=== PATIENT | male | born 1945 | race Caucasian/White ===

== ENCOUNTER 2022-04-01 08:03 | Emergency (ER) | payer SELFPAY ==
[~2022-04-01] VITALS: Ht 167.6 cm; Wt 85.3 kg
--- NOTE | 2022-04-01 08:20 | NUR ---
RECEIVED PT 76 YRS MALE CAME FROM HOME S/P GLF C/O PAIN ON LT ANKLE
--- NOTE | 2022-04-01 09:04 | NUR ---
RESTING AT THIS TIME
--- NOTE | 2022-04-01 10:47 | NUR ---
PT RESTING WITH NO PAIN
--- NOTE | 2022-04-01 11:00 | NUR ---
X RAY DONE ON
--- NOTE | 2022-04-01 12:40 | NUR ---
RESTING AND ASLEEPY NO PAIN
--- NOTE | 2022-04-01 13:47 | NUR ---
Patient discharged to home in stable condition. Written and verbal after care instructions given. Patient verbalizes understanding of instruction.
[2022-04-01 13:55] VITALS: BP 126/75
== END 2022-04-01 14:18 | disposition home or self-care (01) ==
LOC: ER 08:07
DX: M77.32 Calcaneal spur, left foot (principal); M79.662 Pain in left lower leg; W18.39XA Other fall on same level, initial encounter; Y93.89 Activity, other specified; Y92.89 Other specified places as the place of occurrence of the external cause; Y99.8 Other external cause status
CPT/HCPCS: 73610-TC; 82962-TC; 93926-TC; 93971-TC

== ENCOUNTER 2022-11-23 16:56 | Emergency (ER) | payer MEDICARE ==
[~2022-11-23] VITALS: Ht 175.3 cm; Wt 79.4 kg
--- NOTE | 2022-11-23 17:15 | NUR ---
BIBRA 839 BILATERAL FOOT PAIN , WAS DISCHARGE FROM [facility] THIS MORNING FOR PERIPHERAL NEUROPATHY.
[2022-11-23] MEDS ORDERED: GABAPENTIN 100 MG CAPSULE PO ONE (17:30)
[2022-11-23] MEDS ORDERED: GABAPENTIN 300 MG CAPSULE ONE (17:33)
[2022-11-23] MEDS ORDERED: GABA-532 PO (17:43)
--- NOTE | 2022-11-23 18:05 | NUR ---
TAXI VOUCHER PROVIDED TO PATIENT
[2022-11-23 18:06] VITALS: BP 151/81
--- NOTE | 2022-11-23 18:06 | NUR ---
Patient discharged to home in stable condition. Written and verbal after care instructions given. Patient verbalizes understanding of instruction.
== END 2022-11-23 18:07 | disposition home or self-care (01) ==
LOC: ER 17:10
DX: E11.40 Type 2 diabetes mellitus with diabetic neuropathy, unspecified (principal)
CPT/HCPCS: 82962-TC

== ENCOUNTER 2024-06-19 08:50 | Inpatient (IN) | payer MEDICARE ==
[~2024-06-19] VITALS: Ht 175.3 cm; Wt 78.0 kg
[~2024-06-19 08:50] MED LIST: GABA-532 PO
[2024-06-19 09:38] LABS: BASOPHILS % (AUTO) 0.2 % (0.0-2.0); EOSINOPHILS % (AUTO) 0.1 % (0.0-6.0); HEMATOCRIT 39 % (39-51); HEMOGLOBIN 13.1 g/dL (13.5-17.5); LYMPHOCYTES # (AUTO) 0.6 K/uL (0.8-4.8); MEAN CORPUSCULAR HEMOGLOBIN 34 PG (26.0-33.0); MEAN CORPUSCULAR HGB CONC 34 g/dl (31.0-36.0); MEAN CORPUSCULAR VOLUME 100 fL (80-96); MONOCYTES # (AUTO) 0.6 K/uL (0.1-1.30); MONOCYTES % (AUTO) 5.4 % (2.0-12.0); NEUTROPHILS # (AUTO) 9.4 K/uL (1.8-8.9); NEUTROPHILS % (AUTO) 88.3 % (43.0-81.0); PLATELET COUNT (AUTO) 155 K/uL (150-450); RED BLOOD CELL COUNT(AUTO) 3.86 MIL/uL (4.5-6.0); RED CELL DISTRIBUTION WIDTH 14.1 % (11.5-15.0); WHITE BLOOD COUNT (AUTO) 10.7 K/uL (4.3-11.0)
[2024-06-19 09:48] LABS: CALCIUM, SERUM 9.9 mg/dL (8.5-10.1); CARBON DIOXIDE 30 mmol/L (21-32); CHLORIDE 106 mmol/L (98-107); CREATININE 1.4 mg/dL (0.6-1.3); GLUCOSE 132 mg/dL (74-106); POTASSIUM 4.5 mmol/L (3.5-5.1); SODIUM SERUM 143 mmol/L (136-145); UREA NITROGEN, BLOOD 24 mg/dL (7-18)
[2024-06-19 09:51] LABS: INR 1.13 (0.91-1.10); PARTIAL THROMBOPLASTIN TIME 26.5 SEC (24.3-34.3); PROTHROMBIN TIME 11.9 SECS (9.2-11.1)
[2024-06-19 09:54] LABS: ALANINE AMINOTRANSFERASE 17 U/L (12-78); ALBUMIN 3.8 g/dL (3.4-5.0); ALKALINE PHOSPHATASE 58 U/L (46-116); ASPARTATE AMINOTRANSFERASE 27 U/L (15-37); BILIRUBIN,DIRECT 0.2 mg/dL (0.0-0.2); BILIRUBIN,TOTAL 0.8 mg/dL (0.2-1.0); TOTAL PROTEIN, SERUM 7.7 g/dL (6.4-8.2)
[2024-06-19 11:21] LABS: AMPHETAMINE, URINE NEGATIVE (NEGATIVE); BARBITURATE, URINE NEGATIVE (NEGATIVE); BENZODIAZEPINE, URINE NEGATIVE (NEGATIVE); CANNABINOID, URINE NEGATIVE (NEGATIVE); COCCAINE, URINE NEGATIVE (NEGATIVE); OPIATE, URINE NEGATIVE (NEGATIVE); PHENCYCLIDINE SCREEN,URINE NEGATIVE (NEGATIVE)
[2024-06-19 11:22] LABS: APPEARANCE,URINE CLEAR (CLEAR); BILIRUBIN,URINE NEGATIVE (NEGATIVE); BLOOD, URINE TRACE-INTA Ery/uL (NEGATIVE); COLOR,URINE YELLOW (YELLOW); KETONES,URINE NEGATIVE (NEGATIVE); LEUKOCYTE ESTERASE ,URINE NEGATIVE (NEGATIVE); NITRITE, URINE NEGATIVE (NEGATIVE); PROTEIN,URINE 1+ mg/dl (NEGATIVE); UGLUCOSE NEGATIVE (NEGATIVE); UROBILINOGEN,URINE 0.2 EU/dL (0.2)
[2024-06-19 11:24] LABS: ADD URINE CULTURE NO; BACTERIA,URINE Rare /HPF (None Seen); RBC,URINE 0-2 /HPF (0-2); SQUAMOUS EPITHELIAL CELL,UR Few /HPF (None Seen); WBC,URINE 0-2 /HPF (0-3)
[2024-06-19] MEDS ORDERED: LOSA1TAB39 PO (11:45)
[2024-06-19] MEDS ORDERED: GLIP2.5T3 PO (11:45)
[2024-06-19] MEDS ORDERED: GABA300C PO (11:45)
[2024-06-19] MEDS ORDERED: FINA5TAB11 PO (11:45)
[2024-06-19] MEDS ORDERED: BISO5TAB20 PO (11:45)
[2024-06-19] MEDS ORDERED: ASPI-1420 PO (11:45)
[2024-06-19] MEDS ORDERED: TAMS-12 PO (11:45)
[2024-06-19] MEDS ORDERED: LORA2TAB95 PO (11:45)
[2024-06-19] MEDS ORDERED: MONT10TA22 PO (11:45)
[2024-06-19] MEDS ORDERED: ATOR20TA PO (11:45)
[2024-06-19] MEDS ORDERED: FAMO20TA8 PO (11:45)
[2024-06-19] MEDS ORDERED: DIGO-30 PO (11:45)
[2024-06-19] MEDS ORDERED: DEXTROSE 50%-WATER 50 ML DISP.SYRIN IV PRN (13:30)
[2024-06-19] MEDS ORDERED: MAGNESIUM HYDROXIDE 30 ML UDC PO PRN (13:30)
[2024-06-19] MEDS ORDERED: ONDANSETRON HCL/PF 4 MG/2 ML VIAL IVP PRN (13:30)
[2024-06-19] MEDS ORDERED: MAG HYDROX/AL HYDROX/SIMETH 30 ML UDC PO PRN (13:30)
[2024-06-19] MEDS: DIGOXIN 0.125 MG TABLET PO SCH (14:00)
[2024-06-19 14:30] VITALS: BP 150/69; TEMP 97.9; O2SAT 97
[2024-06-19] MEDS: ASPIRIN EC 81 MG TABLET.DR PO SCH (14:59)
[2024-06-19] MEDS: FINASTERIDE (5 MG) 5 MG TABLET PO SCH (14:59)
[2024-06-19] MEDS: FAMOTIDINE (20 MG) 20 MG TABLET PO SCH (14:59)
[2024-06-19] MEDS: FUROSEMIDE 20 MG/2 ML VIAL IV SCH (14:59)
[2024-06-19] MEDS: MONTELUKAST SODIUM (10MG) 10 MG TABLET PO SCH (14:59)
[2024-06-19 16:00] VITALS: BP 132/74; TEMP 97.7; O2SAT 100
[2024-06-19] MEDS: GABAPENTIN 300 MG CAPSULE PO SCH (16:20)
[2024-06-19] MEDS: DOCUSATE SODIUM 100 MG CAPSULE PO SCH (16:20)
[2024-06-19] MEDS: INSULIN REGULAR, HUMAN 100 UNIT/ML 3 ML VIAL SQ PRN (16:34)
[2024-06-19] MEDS: BLOOD SUGAR DIAGNOSTIC 1 EACH STRIP IN SCH (16:34)
[2024-06-19 20:00] VITALS: BP 112/59; TEMP 97.7; O2SAT 100
[2024-06-19 20:55] VITALS: BP 98/49; TEMP 98.2; O2SAT 100
[2024-06-19 21:32] VITALS: BP 112/59; TEMP 97.7; O2SAT 100
[2024-06-19] MEDS: BISOPROLOL FUMARATE 5 MG TABLET PO SCH (21:42)
[2024-06-19] MEDS: ATORVASTATIN 10 MG TABLET PO SCH (21:43)
[2024-06-19] MEDS: TAMSULOSIN 0.4 MG CAP.SR.24H PO SCH (21:43)
[2024-06-20] VITALS (7 sets, daily range): BP systolic 107–140; BP diastolic 48–66; TEMP 98.2–98.5; O2SAT 96–100
[2024-06-20] MEDS: ACETAMINOPHEN 325 MG TABLET PO PRN (02:58)
[2024-06-20 06:34] LABS: BASOPHILS % (AUTO) 0.4 % (0.0-2.0); EOSINOPHILS # (AUTO) 0.1 K/uL (0.0-0.7); EOSINOPHILS % (AUTO) 1.1 % (0.0-6.0); HEMATOCRIT 37 % (39-51); HEMOGLOBIN 12.7 g/dL (13.5-17.5); LYMPHOCYTES # (AUTO) 1.1 K/uL (0.8-4.8); LYMPHOCYTES % (AUTO) 13.8 % (20.0-44.0); MEAN CORPUSCULAR HEMOGLOBIN 35 PG (26.0-33.0); MEAN CORPUSCULAR HGB CONC 34 g/dl (31.0-36.0); MEAN CORPUSCULAR VOLUME 101 fL (80-96); MONOCYTES # (AUTO) 0.7 K/uL (0.1-1.30); MONOCYTES % (AUTO) 9.5 % (2.0-12.0); NEUTROPHILS # (AUTO) 5.8 K/uL (1.8-8.9); NEUTROPHILS % (AUTO) 75.2 % (43.0-81.0); PLATELET COUNT (AUTO) 132 K/uL (150-450); RED BLOOD CELL COUNT(AUTO) 3.68 MIL/uL (4.5-6.0); RED CELL DISTRIBUTION WIDTH 14.5 % (11.5-15.0); WHITE BLOOD COUNT (AUTO) 7.7 K/uL (4.3-11.0)
[2024-06-20 06:48] LABS: CALCIUM, SERUM 9.6 mg/dL (8.5-10.1); CARBON DIOXIDE 24 mmol/L (21-32); CHLORIDE 107 mmol/L (98-107); CREATININE 1.7 mg/dL (0.6-1.3); GLUCOSE 120 mg/dL (74-106); MAGNESIUM 1.8 mg/dL (1.8-2.4); PHOSPHORUS 3.3 mg/dL (2.5-4.9); POTASSIUM 3.8 mmol/L (3.5-5.1); SODIUM SERUM 142 mmol/L (136-145); UREA NITROGEN, BLOOD 30 mg/dL (7-18)
[2024-06-20] MEDS ORDERED: PANTOPRAZOLE 40 MG TABLET.DR PO SCH (07:30)
[2024-06-20] MEDS: LOSARTAN/HCTZ 50-12.5MG/ 1 EA TABLET PO SCH (08:29)
[2024-06-20] MEDS ORDERED: DIGOXIN 0.125 MG TABLET PO SCH (09:00)
[2024-06-20] MEDS ORDERED: ASPIRIN EC 81 MG TABLET.DR PO SCH (09:00)
[2024-06-20] MEDS ORDERED: FINASTERIDE (5 MG) 5 MG TABLET PO SCH (09:00)
[2024-06-20] MEDS ORDERED: MONTELUKAST SODIUM (10MG) 10 MG TABLET PO SCH (09:00)
[2024-06-20] MEDS ORDERED: FAMOTIDINE (20 MG) 20 MG TABLET PO SCH (09:00)
[2024-06-20] MEDS: IV NS 0.9% 1,000 ML IV PRN (09:41)
[2024-06-20] MEDS: ENOXAPARIN SODIUM 40 MG/0.4 ML DISP.SYRIN SQ SCH (14:13)
[2024-06-20] MEDS: LIDOCAINE 5% (PATCH) 1 EA PATCH TP SCH (14:13)
[2024-06-20] MEDS ORDERED: PREG50CA PO (16:14)
[2024-06-20 16:57] LABS: CREATININE, URINE 181.6 MG/DL (30.0-125.0); URINE TOTAL PROTEIN 39.8 mg/dL (0-11.9)
[2024-06-20 17:01] LABS: APPEARANCE,URINE CLEAR (CLEAR); BILIRUBIN,URINE NEGATIVE (NEGATIVE); BLOOD, URINE NEGATIVE Ery/uL (NEGATIVE); COLOR,URINE YELLOW (YELLOW); KETONES,URINE NEGATIVE (NEGATIVE); LEUKOCYTE ESTERASE ,URINE NEGATIVE (NEGATIVE); NITRITE, URINE NEGATIVE (NEGATIVE); PH,URINE 5.5 (5.0-8.0); PROTEIN,URINE NEGATIVE (NEGATIVE); UGLUCOSE NEGATIVE (NEGATIVE); UROBILINOGEN,URINE 0.2 EU/dL (0.2)
[2024-06-20 18:46] LABS: EOSINOPHIL,URINE None Seen
[2024-06-21] VITALS (7 sets, daily range): BP systolic 94–141; BP diastolic 56–72; TEMP 97.5–98.6; O2SAT 96–100
[2024-06-21 06:30] LABS: BASOPHILS % (AUTO) 0.5 % (0.0-2.0); EOSINOPHILS # (AUTO) 0.2 K/uL (0.0-0.7); EOSINOPHILS % (AUTO) 1.9 % (0.0-6.0); HEMATOCRIT 34 % (39-51); HEMOGLOBIN 11.8 g/dL (13.5-17.5); LYMPHOCYTES # (AUTO) 1.2 K/uL (0.8-4.8); MEAN CORPUSCULAR HEMOGLOBIN 35 PG (26.0-33.0); MEAN CORPUSCULAR HGB CONC 35 g/dl (31.0-36.0); MEAN CORPUSCULAR VOLUME 100 fL (80-96); MONOCYTES # (AUTO) 0.7 K/uL (0.1-1.30); MONOCYTES % (AUTO) 8.2 % (2.0-12.0); NEUTROPHILS # (AUTO) 6.6 K/uL (1.8-8.9); NEUTROPHILS % (AUTO) 75.4 % (43.0-81.0); PLATELET COUNT (AUTO) 130 K/uL (150-450); RED BLOOD CELL COUNT(AUTO) 3.42 MIL/uL (4.5-6.0); WHITE BLOOD COUNT (AUTO) 8.7 K/uL (4.3-11.0)
[2024-06-21 06:37] LABS: ALANINE AMINOTRANSFERASE 12 U/L (12-78); ALBUMIN 3.3 g/dL (3.4-5.0); ALKALINE PHOSPHATASE 49 U/L (46-116); ASPARTATE AMINOTRANSFERASE 27 U/L (15-37); BILIRUBIN,TOTAL 0.6 mg/dL (0.2-1.0); CALCIUM, SERUM 9.3 mg/dL (8.5-10.1); CARBON DIOXIDE 27 mmol/L (21-32); CHLORIDE 108 mmol/L (98-107); CREATININE 1.5 mg/dL (0.6-1.3); GLUCOSE 126 mg/dL (74-106); MAGNESIUM 1.5 mg/dL (1.8-2.4); PHOSPHORUS 3.3 mg/dL (2.5-4.9); POTASSIUM 3.7 mmol/L (3.5-5.1); SODIUM SERUM 142 mmol/L (136-145); TOTAL PROTEIN, SERUM 6.7 g/dL (6.4-8.2); UREA NITROGEN, BLOOD 33 mg/dL (7-18)
[2024-06-21 08:32] LABS: CREATINE KINASE, TOTAL 421 U/L (39-308)
[2024-06-21] MEDS: Magnesium 1GM/D5W 100ML PREMIX 100 ML IV SCH (10:13)
[2024-06-21] MEDS: HYDROCODONE/APAP 10/325MG TABLET PO PRN (21:07)
[2024-06-22] VITALS: BP 114/59; TEMP 98.2; O2SAT 97
[2024-06-22 04:00] VITALS: BP_SYST 123; BP_SYST 129; BP_SYST 131; BP_DIAS 68; BP_DIAS 69; BP_DIAS 74; TEMP 98.1; TEMP 99.1; O2SAT 97
[2024-06-22 05:13] LABS: PTH, INTACT 11 pg/mL (15-65)
[2024-06-22 06:58] LABS: BASOPHILS % (AUTO) 0.4 % (0.0-2.0); EOSINOPHILS # (AUTO) 0.2 K/uL (0.0-0.7); EOSINOPHILS % (AUTO) 2.3 % (0.0-6.0); HEMATOCRIT 35 % (39-51); HEMOGLOBIN 11.9 g/dL (13.5-17.5); LYMPHOCYTES # (AUTO) 1.3 K/uL (0.8-4.8); LYMPHOCYTES % (AUTO) 15.2 % (20.0-44.0); MEAN CORPUSCULAR HEMOGLOBIN 34 PG (26.0-33.0); MEAN CORPUSCULAR HGB CONC 34 g/dl (31.0-36.0); MEAN CORPUSCULAR VOLUME 101 fL (80-96); MONOCYTES # (AUTO) 0.9 K/uL (0.1-1.30); MONOCYTES % (AUTO) 10.9 % (2.0-12.0); NEUTROPHILS # (AUTO) 5.9 K/uL (1.8-8.9); NEUTROPHILS % (AUTO) 71.2 % (43.0-81.0); PLATELET COUNT (AUTO) 133 K/uL (150-450); RED CELL DISTRIBUTION WIDTH 14.2 % (11.5-15.0); WHITE BLOOD COUNT (AUTO) 8.3 K/uL (4.3-11.0)
[2024-06-22 07:00] VITALS: BP 128/71; TEMP 91.5; O2SAT 99
[2024-06-22 07:09] LABS: ALANINE AMINOTRANSFERASE 15 U/L (12-78); ALBUMIN 3.2 g/dL (3.4-5.0); ALKALINE PHOSPHATASE 47 U/L (46-116); ASPARTATE AMINOTRANSFERASE 21 U/L (15-37); BILIRUBIN,TOTAL 0.7 mg/dL (0.2-1.0); CALCIUM, SERUM 9.3 mg/dL (8.5-10.1); CARBON DIOXIDE 28 mmol/L (21-32); CHLORIDE 106 mmol/L (98-107); CREATININE 1.4 mg/dL (0.6-1.3); GLUCOSE 130 mg/dL (74-106); MAGNESIUM 1.7 mg/dL (1.8-2.4); PHOSPHORUS 3.7 mg/dL (2.5-4.9); POTASSIUM 4.4 mmol/L (3.5-5.1); SODIUM SERUM 141 mmol/L (136-145); TOTAL PROTEIN, SERUM 6.9 g/dL (6.4-8.2); UREA NITROGEN, BLOOD 30 mg/dL (7-18)
[2024-06-22] MEDS: MAGNESIUM OXIDE 400 MG TABLET PO ONE (12:53)
[2024-06-24 07:09] LABS: *SPE A/G RATIO 0.9 (0.7-1.7); *SPE ALBUMIN 2.9 g/dL (2.9-4.4); *SPE ALPHA-1-GLOBULIN 0.3 g/dL (0.0-0.4); *SPE ALPHA-2-GLOBULIN 0.9 g/dL (0.4-1.0); *SPE BETA GLOBULIN 0.8 g/dL (0.7-1.3); *SPE GLOBULIN, TOTAL 3.1 g/dL (2.2-3.9); *SPE M-SPIKE Not Observed g/dL (Not Observed); *SPEGAMMA GLOBULIN 1.1 g/dL (0.4-1.8)
== END 2024-06-22 18:43 | DRG 183 ==
LOC: ER 08:52 → TELE 11:39
PROVIDERS: ADMIT Nurse Practitioner Acute Care; ATTEND Nurse Practitioner Acute Care
DX: S22.42XA Multiple fractures of ribs, left side, initial encounter for closed fracture (principal); G93.41 Metabolic encephalopathy; N17.0 Acute kidney failure with tubular necrosis; J98.11 Atelectasis; R55 Syncope and collapse; W19.XXXA Unspecified fall, initial encounter; Y93.9 Activity, unspecified; Y92.003 Bedroom of unspecified non-institutional (private) residence as the place of occurrence of the external cause; I08.0 Rheumatic disorders of both mitral and aortic valves; R00.1 Bradycardia, unspecified; K21.9 Gastro-esophageal reflux disease without esophagitis; L53.9 Erythematous condition, unspecified; E11.40 Type 2 diabetes mellitus with diabetic neuropathy, unspecified; K59.00 Constipation, unspecified; Z88.0 Allergy status to penicillin; N40.0 Benign prostatic hyperplasia without lower urinary tract symptoms; D63.8 Anemia in other chronic diseases classified elsewhere; I44.1 Atrioventricular block, second degree; I12.9 Hypertensive chronic kidney disease with stage 1 through stage 4 chronic kidney disease, or unspecified chronic kidney disease; E11.22 Type 2 diabetes mellitus with diabetic chronic kidney disease; N18.9 Chronic kidney disease, unspecified; Z79.84 Long term (current) use of oral hypoglycemic drugs; Z79.82 Long term (current) use of aspirin; Z79.899 Other long term (current) drug therapy; E87.70 Fluid overload, unspecified
CPT/HCPCS: 36415; 70450-TC; 71045-TC; 71100-TC; 71250-TC; 76770-TC; 80048-TC; 80053-TC; 80076-TC; 81001; 82550-TC; 82553; 82570-TC; 82962-TC; 83735-TC; 83880; 83970; 84100-TC; 84155; 84165; 84300-TC; 84484-TC; 85025-TC; 85730-TC; 93307-TC; 97116-TC; 97530-TC; A4223; G0378; G0480; J1650; J1815; J1940; J3475; J7030